=== PATIENT | male | born 1975 | race Caucasian/White ===

== ENCOUNTER 2021-08-12 22:41 | Emergency (ER) | payer SELFPAY ==
[2021-08-12 22:55] VITALS: BP 147/115; PULSE 98
[2021-08-12] MEDS ORDERED: Ketorolac 30 MG/ML SDV IM ONE (23:51)
[2021-08-12] MEDS ORDERED: Lidocaine 1% 10 ML MDV INJECT ONE (23:51)
[2021-08-13] MEDS ORDERED: Diphtheria,Pertussis(Acell),Tetanus Vaccine 0.5 ML Syringe IM ONE (01:08)
== END 2021-08-13 01:35 | disposition home or self-care (01) ==
LOC: JD.ED 22:41
DX: S61.312A Laceration without foreign body of right middle finger with damage to nail, initial encounter (principal); Z87.891 Personal history of nicotine dependence; Z23 Encounter for immunization; W23.1XXA Caught, crushed, jammed, or pinched between stationary objects, initial encounter
CPT/HCPCS: 11730; 73130-26-RT; 73130-RT; 90471; 90715; 96372; 99283-25; J1885